=== PATIENT | male | born 1955 ===

== ENCOUNTER → 2021-01-07 | Outpatient (CLI) | payer OTHER ==
[2021-01-07] VITALS (9 sets, daily range): BP systolic 99–140; BP diastolic 65–88; PULSE 47–69
[~2021-01-07] VITALS: Ht 162.6 cm; Wt 85.5 kg
[~2021-01-07] MED LIST: INDERAL 10MG10 MG PO; LIPITOR 10MG10 MG PO; MELATONIN1 MG PO; NORVASC2.5 MG PO; RESTORIL 1515 MG/CAP PO; SYNTHROID 0.0.025 MG PO
--- NOTE | 2021-01-07 14:26 | NUR ---
BP RECHECK 102/71
--- NOTE | 2021-01-07 15:45 | NUR ---
1410DR IVESTER INTO ROOM 1425BP MD JOHN AWARE RECHECK 102/71 1435SAMPLES TAKEN AND PLACED INTO FORMALIN 1438LEAVE FOR RAD HOLDING
== END ==
LOC: COL.RAD 11:42
DX: C61 Malignant neoplasm of prostate (principal); I10 Essential (primary) hypertension; R59.0 Localized enlarged lymph nodes
CPT/HCPCS: 32107